=== PATIENT | female | born 1990 | race African-American/Black ===

== ENCOUNTER 2019-07-10 09:24 | Inpatient (IN) ==
--- NOTE | 2019-07-10 09:54 | PROVIDER DOCUMENTATION ---
HPI-General Adult - General Chief Complaint: Abnormal Lab[s] Stated Complaint: ABNORMAL LAB Time Seen by Provider: 07/10/19 09:39 Source: patient Allergies/Adverse Reactions: Patient Allergies Allergy/AdvReac Type Severity Reaction Status Date / Time No Known Allergies Allergy Verified 07/10/19 10:07 Home Medications: Home Medication List Medication Instructions Recorded Confirmed Last Taken Type Cholecalciferol (Vitamin D3) 50,000 unit PO DIRECTED 12/21/18 07/10/19 07/10/19 History [Vitamin D3] Ferrous Sulfate 500 gm MC DIRECTED 12/21/18 07/10/19 07/10/19 History Folic Acid 1 mg PO DAILY 12/21/18 07/10/19 07/10/19 History Magnesium Cl D.r. [Slow-Mag] 64 mg PO BID #60 tab 12/21/18 07/10/19 07/10/19 Rx Oxcarbazepine 600 mg PO BID 12/21/18 07/10/19 07/10/19 History Magnesium Oxide [Magnesium] 400 mg PO BID #30 cap 01/27/19 07/10/19 07/10/19 Rx Levetiracetam 1 tab PO BID 07/10/19 07/10/19 07/10/19 History - History of Present Illness -Gen Adult Nature of Presenting Problems: Patient is a 29yo F who presents after being referred from her PCP for "low blood and magnesium." Reports she has been experiencing generalized pain/back pain for "a minute." States her PCP informed patient she might have Lupus. Patient also reports a productive cough for weeks. States family hx of SCA, however reports she does not think she has ever been tested. Patient denies CP, SOB, n/v, blood in emesis/stool, abdominal pain. Labs from PCP's office faxed over demonstrating Hemoglobin of 6.9, Hematocrit of , and Magnesium of 0.88. Location of Pain/Injury: reports: generalized Pain Radiation: reports: no radiation Quality of Pain: reports: aching Severity: reports: mild Onset/Duration: reports: other ("a minute") Timing: reports: still present Context/Activities at Onset: reports: none Modifying Factors: improves with: nothing Associated Symptoms: reports: back/neck pain, cough, fever/chills, sinus c ongestion/drainage. denies: chest pain, nausea, shortness of breath, vomiting Similar Symptoms Previously?: No Recently seen or treated by another doctor?: Yes (saw PCP yesterday) Review of Systems - Adult - REVIEW OF SYSTEMS - ADULT Constitutional: reports: see HPI, fever Eyes: reports: no symptoms reported. denies: blurred vision, double vision Ears, Nose, Mouth & Throat: reports: no symptoms reported. denies: ear pain, throat pain Cardiovascular: reports: no symptoms reported. denies: chest pain, palpitations Respiratory: reports: see HPI, cough. denies: shortness of breath Gastrointestinal: reports: no symptoms reported. denies: abdominal pain, hematemesis, vomiting Genitourinary: reports: no symptoms reported. denies: dysuria Musculoskeletal: reports: see HPI, back pain (bilat. lower back), joint pain (generalized) Integumentary: reports: no symptoms reported Neurological: reports: no symptoms reported. denies: dizziness/vertigo, headache/migraines Psychiatric: reports: no symptoms reported Endocrine: reports: no symptoms reported Hematologic/Lymphatic: reports: see HPI, low blood count Past History - Adult - PAST MEDICAL HISTORY-ADULT Review of Records: reports: Nursing Assessment Review, Medications Reviewed Major Childhood Illnesses: reports: denies history Cardiovascular: reports: denies history Respiratory: reports: denies history Gastrointestinal: reports: denies history Obstetrical/Gynecological: reports: denies history Genitourinary: reports: denies history Musculoskeletal: reports: denies history Neurological: reports: Seizures/Epilepsy Endocrine/Immune: reports: denies history Other Conditions: reports: denies history - PRIOR SURGERIES/PROCEDURES Surgical/Procedure History: reports: other (SCA) - IMMUNIZATION STATUS Childhood Immunizations: See Nurse Assessment Flu Vaccine: See Nurse Assessment - FAMILY HISTORY Family History: reviewed, not pertinent - SOCIAL HISTORY Smoking: other (former) Substance Use: denies Alcohol Use Frequency: sober (former use) Physical Exam-General - PHYSICAL EXAM-ADULT Initial Vital Signs Reviewed: Yes - CONSTITUTIONAL General Appearance: alert, mild distress. negative: lethargic, slow to respond, obtunded - EYES Eyes: PERRL/EOMI, pink conjunctivae. negative: EOM palsy, scleral icterus - HEAD, EARS, NOSE, MOUTH & THROAT HENMT: normocephalic/atraumatic, moist mucous membranes. negative: angioedema - NECK Neck: full range of motion, supple, normal inspection - RESPIRATORY Respiratory: chest non-tender, lungs clear, normal breath sounds, no pleuratic chest pain, no respiratory distress, no accessory muscle use. negative: crackles, rales, rhonchi, stridor, wheezing - CARDIOVASCULAR Cardiovascular: no gallop, tachycardia (123) - GASTROINTESTINAL (ABDOMEN) Abdominal Exam: normal bowel sounds, non tender, soft. negative: tenderness - GENITOURINARY Rectal Exam: normal exam - MUSCULOSKELETAL Back Exam: normal inspection, no vertebral tenderness, other (mild TTP R lumbar paraspinous muscles) Extremity: normal range of motion, non-tender, normal inspection - SKIN Integumentary: normal color, warm/dry. negative: cyanosis, jaundice, pallor - NEUROLOGIC Neurologic: grossly normal. negative: aphasia, EOM palsy - PSYCHIATRIC Psych/Mental Status: normal mood/affect, normal thought content, normal thought process, oriented x 3 Progress - PLAN OF CARE/RESULTS Progress/Plan/Lab Results: Vital Signs - 8 hr 07/10/19 09:31 Temperature 99.7 F H Pulse Rate 123 H Respiratory Rate 19 Blood Pressure 78/46 O2 Sat by Pulse Oximetry 97 Orders Category Date Time Status Cardiac Monitoring NOW Care 07/10/19 09:37 Active ED: Urine Bedside ORDERED Care 07/10/19 09:47 Ordered IV Insertion NOW Care 07/10/19 09:37 Active NEWS Score >or=5:Order NEWS Bundle S.O. NOW Care 07/10/19 09:35 Active Notify Provider of NEWS Score NOW Care 07/10/19 09:37 Active CHEST-1 VIEW [RAD] Stat Exams 07/10/19 09:37 Ordered BLOOD CULTURE [BLDCUL] Stat Lab 07/10/19 09:37 Uncollected CBC WITH DIFF [HEME] Stat Lab 07/10/19 09:37 Uncollected CK PROFILE [SP CHEM] Stat Lab 07/10/19 09:37 Uncollected COMPREHENSIVE METABOLIC PANEL [CHEM] Stat Lab 07/10/19 09:37 Uncollected LACTATE, PLASMA [CHEM] Q3H Lab 07/10/19 09:45 Uncollected LACTATE, PLASMA [CHEM] Q3H Lab 07/10/19 12:45 Uncollected LACTATE, PLASMA [CHEM] Q3H Lab 07/10/19 15:45 Uncollected MAGNESIUM [CHEM] Stat Lab 07/10/19 09:47 Uncollected PHOSPHORUS [CHEM] Stat Lab 07/10/19 09:47 Uncollected PROTIME WITH INR [COAG] Stat Lab 07/10/19 09:37 Uncollected PTT [COAG] Stat Lab 07/10/19 09:37 Uncollected SICKLE CELL SCREEN [HEME] Stat Lab 07/10/19 09:47 Uncollected TROPONIN T HIGH SENSITIVITY Stat Lab 07/10/19 09:37 Uncollected TYPE & SCREEN [BBK] Stat Lab 07/10/19 09:47 Uncollected URINE DRUG SCREEN Stat Lab 07/10/19 09:48 Uncollected O2 Per Protocol Stat Oth 07/10/19 09:37 Active Lab results, imaging results, plan of care, and need for admission discussed with patient who agrees with and verbalizes understanding. 1207: Patient's CXR has resulted demonstrating basilar pneumonia. Hospitalist paged for notification. Plan of care discussed and formulated in conjunction with Dr. Decker. Result Diagrams: 07/10/19 09:50 07/10/19 09:50 - XRAY 1 XRAY: Bilateral XRAY Study: Lumbar Spine Impression: See EMR Report ([facility] - [address] [facility], [address] [address] [facility] - [address] [place] [address] Department of Imaging Patient: MERVAT LUIS Date: 07/10/19MR#: [id number] : 1990ADM [id number] Age/Sex: 29/FRoom/Bed: Loc: ED Ordering Physician: Mayela Lara Family Physician: Audra Amaya Reason for Procedure: R back pain Signed EXAM: LUMBAR SPINE HISTORY: R back pain TECHNIQUE: AP and lateral with obliques, six views COMPARISON: None. FINDINGS: There is good alignment to the lumbar spine. No compressed vertebra. No degenerative bone spurring.L4 pars defects but only minimal subluxation. IMPRESSION: Pars defects Electronically signed by Julian Dubose 07/10/2019 11:2 8 AM 07/10/19 1128 Interpreting Physician: Julian Dubose MD Dictated Date/Time: 07/10/19 1126 cc: Mayela Ordoñez; Audra Amaya) 2 XRAY: Bilateral XRAY Study: Chest Impression: See EMR Report ([facility] - [address] [facility], [address], [place] [address] [facility] - [address] [place] [address] Department of Imaging Patient: MERVAT LUIS Date: 07/10/19MR#: [id number] : 1990ADM Status: [facility]#: [id number] Age/Sex: 29/FRoom/Bed: Loc: ED Ordering Physician: Mayela Lara Family Physician: Audra Amaya Reason for Procedure: Productive cough; fever Signed EXAM: CHEST-2 VIEWS HISTORY: Productive cough; fever TECHNIQUE: two views COMPARISON: 12-08-17. FINDINGS: The lungs are well expanded. The heart is not enlarged. The vessels are not distended. There are basilar infiltrates. No pleural effusions. IMPRESSION: Base pneumonia. Electronically signed by Julian Dubose 07/10/2019 11:29 AM 07/10/19 1129 Interpreting Physician: Julian Dubose MD Dictated Date/Time: 07/10/19 1128 cc: Mayela Ordoñez; Audra Amaya) - CONSULTS/PCP/HOSPITALIST Notification #1 *Consult/PCP/Hospitalist*: HECTOR Sanchez Hospitalist Time Discussed: 11:18 Reason/Comments: Symptomatic anemia, sickle cell crisis Consult Disposition: Will see in ED, Admit #2 Consult: HECTOR Sanchez Hospitalist Time Discussed: 12:10 Reason/Comments: CXR demonstrates PNA; hypomagnesemia Consult Disposition: Admit (Order IV Zosyn and Magnesium) Departure - Departure Date of Disposition Decision: 07/10/19 Time of Disposition Decision: 11:18 DIAGNOSIS: Hyponatremia, Hypomagnesemia Sickle cell anemia Qualifiers: Sickle-cell associated disorders: with unspecified crisis Qualified Code(s): D57.00 - Hb-SS disease with crisis, unspecified Pneumonia Qualifiers: Pneumonia type: due to unspecified organism Laterality: bilateral Lung location: lower lobe of lung Qualified Code(s): J18.1 - Lobar pneumonia, unspecified organism Disposition: ADMITTED INPATIENT 09 Certified Medical Emergency: Emergent Condition: Stable - Critical Care Note This patient required my direct & personal management of CC.: Yes Total Time (mins): 36 Critical Care Statement: This patient required my direct personal management to treat or rule out processes, the absence of which, could potentiallly result in sudden, clinically significant life or limb threatening deterioration. Attestation - Physician/ MARGARITA Attestation Patient care was provided by Advanced Practice Provider:: Yes Advanced Practice Provider:: Mayela Ordoñez Advanced Practice Provider documentation review:: The Mid-level provider documentation, treatment plan and medical decision making was reviewed by the physician who agrees with all treatment and medical decision making by the P. The physician spent face to face time with patient:: No Advanced Practice Provider documentation review:: Supervising physician onsite and consulted in the evaluation and care of this patient. The physician did not have a face to face encounter with the patient.
[2019-07-10 10:21] LABS: RETIC% 2.11 % (0.8-2.1); RETIC-HE 25.6 PG (28.2-36.6)
[2019-07-10 10:23] LABS: BASO# 0.02 X1000 (0.0-0.2); BASO% 0.4 % (0.0-0.8); EOS# 0.02 X1000 (0.0-0.7); EOS% 0.4 % (0.0-10.0); HEMATOCRIT 21.8 % (37.0-47.0); HEMOGLOBIN 6.8 g/dL (12.0-16.0); IMM GRAN# 0.03 X1000 (0.0-0.04); IMM GRAN% 0.6 % (0.0-0.5); LYMPH# 0.84 X1000 (1.2-3.4); MCH 26.2 PG (27-31); MCHC 31.2 g/dL (33-37); MCV 83.8 FL (81-99); MONO# 0.26 X1000 (0.11-0.59); MONO% 5.6 % (1.7-9.3); MPV 9.4 FL (7.4-10.4); NEUT# 3.49 X1000 (1.4-6.5); PLT 294 X1000 (130-400); RDW 13.8 % (11.5-14.5); WBC 4.66 X1000 (4.8-10.8)
[2019-07-10 10:35] LABS: INR 1.22; PROTIME 15.6 Seconds (11.0-16.0)
[2019-07-10 10:36] LABS: PTT 33.1 Seconds (22.3-41.8)
[2019-07-10 10:45] LABS: BANDS 8 % (0-1); LYMPHS 24 % (21-51); SEGS 68 % (42-75)
[2019-07-10] MEDS ORDERED: NS 500 ML IV ONE (10:49)
[2019-07-10 10:56] LABS: ESTIMATED GFR > 60
[2019-07-10 10:57] LABS: IRON SATURATION 18 %; TIBC 137 ug/dL; TOTAL IRON 25 ug/dL (49-151); UNBOUND IRON 112 ug/dL (112-346)
[2019-07-10 11:11] LABS: AGAP 12; ALB/GLOB RATIO 0.4; ALBUMIN 2.3 g/dL (3.5-5.0); ALKALINE PHOSPHATASE 42 U/L (32-104); BUN 10 mg/dL (8-22); CALCIUM 7.6 mg/dL (8.8-10.2); CHLORIDE 102 mmol/L (98-107); CK PROFILE 118 U/L (24-173); COSMO 266; CREATININE 0.7 mg/dL (0.5-0.9); GLUCOSE 116 mg/dL (70-104); GOT 35 U/L (10-30); GPT 20 U/L (10-36); PHOSPHORUS 3.6 mg/dL (2.7-4.5); POTASSIUM 3.8 mmol/L (3.5-5.1); SODIUM 133 mmol/L (136-145); TCO2 19 mmol/L (25-35); TOTAL BILIRUBIN 0.29 mg/dL (0.20-1.00); TOTAL PROTEIN 8.7 g/dL (6.3-8.3)
[2019-07-10 11:13] LABS: SICKLE CELL SCREEN POSITIVE (NEGATIVE)
[2019-07-10 11:15] LABS: UR AMPHETAMINES QUAL NONE DETECTED (NONE DETECT); UR BARBITUATES QUAL NONE DETECTED (NONE DETECT); UR BENZODIAZEPIN QUAL NONE DETECTED (NONE DETECT); UR CANNABINOIDS QUAL NONE DETECTED (NONE DETECT); UR COCAINE QUAL NONE DETECTED (NONE DETECT); UR METHADONE QUAL NONE DETECTED (NONE DETECT); UR OPIATES QUAL NONE DETECTED (NONE DETECT); UR OXYCODONE QUAL NONE DETECTED (NONE DETECT); UR PCP QUAL NONE DETECTED (NONE DETECT)
--- NOTE | 2019-07-10 11:30 | Diag Imaging Result Doc PS360 ---
EXAM: LUMBAR SPINE HISTORY: R back pain TECHNIQUE: AP and lateral with obliques, six views COMPARISON: None. FINDINGS: There is good alignment to the lumbar spine. No compressed vertebra. No degenerative bone spurring.L4 pars defects but only minimal subluxation. IMPRESSION: Pars defects Electronically signed by Julian Dubose 07/10/2019 11:28 AM
--- NOTE | 2019-07-10 11:32 | Diag Imaging Result Doc PS360 ---
EXAM: CHEST-2 VIEWS HISTORY: Productive cough; fever TECHNIQUE: two views COMPARISON: 12-08-17. FINDINGS: The lungs are well expanded. The heart is not enlarged. The vessels are not distended. There are basilar infiltrates. No pleural effusions. IMPRESSION: Base pneumonia. Electronically signed by Julian Dubose 07/10/2019 11:29 AM
[2019-07-10 11:47] LABS: MAGNESIUM 1.1 mg/dL (1.5-2.7)
[2019-07-10] MEDS ORDERED: FERROUS SULFATE MC SCH (11:57)
[2019-07-10] MEDS ORDERED: ZOFRAN IV PRN (11:57)
[2019-07-10] MEDS ORDERED: TYLENOL PO PRN (11:57)
[2019-07-10] MEDS ORDERED: ZOSYN 3.375 GM in NS 50 ML IV ONE (12:09)
[2019-07-10] MEDS ORDERED: MAGNESIUM SULFATE 2 GM/S.W.I. 2 GM/50 ML IVPB IV ONE ×2 (12:10→12:11)
[2019-07-10] MEDS ORDERED: FLU VACCINE IM ONE (12:44)
[2019-07-10] MEDS: NS 1,000 ML IV SCH (15:12)
--- NOTE | 2019-07-10 15:27 | HISTORY AND PHYSICAL ---
CHIEF COMPLAINT: Sent from her primary care's office secondary to abnormal blood work, body pain, back pain, hard to walk. PRIMARY CARE PROVIDER: Audra Hanson NEUROLOGIST: Dr. Wilson HISTORY OF PRESENT ILLNESS: Ms. Graff is a 29-year-old female with a past medical history of seizures as a child, hypomagnesemia, what looks like iron deficiency anemia; however, she claims no other past medical history. Reports fever yesterday while she was getting her blood drawn. She was coughing up stuff last week. Still has a cough. She reported her cough being yellowish in color, sometimes blood tinged. She was instructed to come to the ED at the recommendation of her primary care provider. She was found to have an hemoglobin and hematocrit of 6 and 21. Her sickle cell screen was positive. Her percentage of reticulocytes was 2.11, and reticulocyte hemoglobin equivalent was 25.6. She had a magnesium of 1.1 and a magnesium of 3.8. Two negative lactates. She was initiated on IV fluids. She was typed and screened and will be given 2 units of PRBCs. We put in a consult for Hematology given her new diagnosis of sickle cell at the age of 29. Chest x-ray just showed a basilar pneumonia. Lumbar spine shows pars defects at L4 but only minimal subluxation. She is going to be admitted for sickle cell as well as pneumonia. Continue with further treatment and evaluation. PAST MEDICAL HISTORY: Seizures, iron deficiency anemia. PAST SURGICAL HISTORY: Denies. SOCIAL HISTORY: She lives with family. No tobacco, alcohol or illicit drug use. FAMILY HISTORY: Mother with lung cancer. Aunt with lupus. She called her brother to ask about sickle cell. There was a possibility that there was some on her mother's side, they are really unsure. ALLERGIES: No known drug allergies. HOME MEDICATIONS: 1. Ferrous sulfate 500 as directed. 2. Folic acid 1 mg p.o. daily. 3. Keppra 500 mg p.o. b.i.d. 4. Trileptal 600 mg p.o. b.i.d. 5. Magnesium 400 mg p.o. b.i.d. REVIEW OF SYSTEMS: A 12-point review of systems is completely negative except for those mentioned in the HPI. PHYSICAL EXAMINATION: VITAL SIGNS: Temperature is 99.4, heart rate 122, respirations 20, blood pressure 133/86, O2 saturation is 100% on room air. GENERAL: Ms. Graff is a pleasant 29-year-old female who is sitting up in the bed eating a cheeseburger and austrian fries, in no acute distress. HEENT: Atraumatic and normocephalic. PERRLA. NECK: Supple. Trachea midline. CARDIOVASCULAR: S1 and S2 appreciated. Tachycardic, but no murmurs, rubs or gallops noted. No lower extremity edema. No JVD. PULMONARY: Bilateral breath sounds clear bilaterally. I did not appreciate any rales, rhonchi or wheezes. GASTROINTESTINAL: Flat, soft, nontender, nondistended. Positive bowel sounds in all 4 quadrants. NEUROLOGICAL: She is awake, alert and oriented, follows commands, answers all questions appropriately. Some question of cognitive issues, however, very minimal. SKIN: Warm, dry and intact. DIAGNOSTIC DATA: Chest x-ray shows base pneumonia with bibasilar infiltrates. Lumbar spine shows pars defect. Laboratory data shows white count of 4, hemoglobin and hematocrit are 6 and 21. Sickle cell positive. Percent reticulocytes 2.11, reticulocyte hemoglobin equivalent was 25.6. Sodium is 133, potassium 3.8, BUN is 10, creatinine 0.6, blood glucose is 116, magnesium was 1.1. Iron was 25. First lactate 1.5, second lactate 1.3. Tox screen negative. ASSESSMENT AND PLAN: 1. Sickle cell anemia. She will be transfused with 2 units of PRBCs. We will consult Hematology for further evaluation and treatment. 2. Bibasilar pneumonia. She was initiated on IV antibiotics. Continue with aggressive pulmonary toilet. Supplement O2 as needed. Bronchodilators. 3. Mild hyponatremia. We will continue with IV hydration. 4. Hypomagnesemia. Currently being replenished. We will recheck in the a.m. 5. Iron deficiency anemia. 6. Seizures. She will continue on her home regimen. 7. Mild Cognitive impairment. 8. Further recommendations to follow physician evaluation, laboratory and diagnostic data. Dictated by HECTOR Clarke for Angel Rose MD cc: MD Audra Dong
[2019-07-10] MEDS: DUONEB (A & A) INH PRN (15:57)
--- NOTE | 2019-07-10 19:01 | HISTORY AND PHYSICAL ---
ADDENDUM REPORT I have seen and examined Ms. Graff today. HISTORY OF PRESENT ILLNESS: Ms. Graff is a 29-year-old female who was directly admitted from her primary care office because of abnormal labs. Ms. Graff said she went for her regular physical. Lab tests were done. She was called to come to the ER because of low hemoglobin and hematocrit. Upon presenting, her blood count was 6.8. Ms. Graff has a history of seizure disorder on Keppra and oxcarbazepine. OBJECTIVE: Vital signs: Blood pressure is 140/71, pulse of 113, respirations 20, temperature 99.4 degrees. General: Ms. Graff 29-year-old female. She is in bed. No distress. Mucosa is pink and moist. Anicteric. Acyanotic. Neck: Supple. Chest: Good air entry bilateral. There was no crepitations. No rhonchi. Cardiovascular: Regular rate and rhythm. Abdomen: Soft, nontender. Extremities: No pedal edema. Central Nervous System: Patient is awake, alert. She is oriented to person, to place and time but she seems slightly slow in mentation. The patient also has low-set ears and slanted eye features. These are concerning for some chromosomopathy. LABORATORY DATA: WBC is 4.66, hemoglobin is 6.8, platelet count of 294,000. INR is normal. Chemistry shows non-gap metabolic acidosis. IMAGING STUDIES: Including a chest x-ray shows base pneumonia. ASSESSMENT: 1. Normocytic anemia with hypoproliferative bone marrow state.Sickle cell screening is positive. How ever the labs does not support hemolysis 2. History of lupus. 3. Generalized body pains and aches. 4. Bibasilar pneumonia. 5. Intellectual impairment. 6. 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 7. History of seizures. 8. Non-gap metabolic acidosis with a previous urinalysis concerning for albuminuria, low magnesium, all concerning for a proximal tubal defect. In the context of anemia and what seems to be the somatic features of the patient will need to be concerned Fanconi syndrome at some point. Please refer to the details of the history and physical dictated by the BLOW MOLD TECHNICIAN. I have discussed the plan with her. I have also discussed the plan and my findings with Ms. Graff. cc: MD GEORGES Dong
[2019-07-10] MEDS: MAG-OX PO SCH (21:42)
[2019-07-10] MEDS: TRILEPTAL PO SCH (21:42)
[2019-07-10] MEDS: KEPPRA PO SCH (21:42)
[2019-07-10 23:58] LABS: URINE SOURCE CLEAN CATCH
[2019-07-11 02:02] LABS: BILIRUBIN URINE NEGATIVE (NEGATIVE); BLOOD URINE LARGE (NEGATIVE); COLOR YELLOW; GLUCOSE URINE NEGATIVE (NEGATIVE); KETONE URINE NEGATIVE (NEGATIVE); LEUKOCYTES URINE TRACE (NEGATIVE); NITRITE URINE NEGATIVE (NEGATIVE); PH URINE 6.5; PROTEIN URINE 30 mg/dL (NEGATIVE); SP GRAVITY URINE 1.015; TURBIDITY URINE CLEAR (CLEAR); UROBILINOGEN URINE NORMAL (NORMAL)
[2019-07-11 02:03] LABS: URINE WBC <10 /HPF (<10)
[2019-07-11 02:04] LABS: UR EPITHELIAL CELLS >10 /HPF (<10); URINE BACTERIA NEGATIVE /HPF; URINE RBC >40 /HPF (<10)
[2019-07-11 07:41] LABS: BASO# 0.03 X1000 (0.0-0.2); BASO% 0.8 % (0.0-0.8); EOS# 0.02 X1000 (0.0-0.7); EOS% 0.6 % (0.0-10.0); HEMATOCRIT 29.4 % (37.0-47.0); HEMOGLOBIN 9.5 g/dL (12.0-16.0); LYMPH# 0.75 X1000 (1.2-3.4); LYMPH% 21.1 % (20.5-51.1); MCH 27.5 PG (27-31); MCHC 32.3 g/dL (33-37); MONO# 0.29 X1000 (0.11-0.59); MONO% 8.1 % (1.7-9.3); MPV 9.8 FL (7.4-10.4); NEUT# 2.47 X1000 (1.4-6.5); NEUT% 69.4 % (42.2-75.2); PLT 271 X1000 (130-400); RBC 3.46 XMIL (4.2-5.4); RDW 14.3 % (11.5-14.5); WBC 3.56 X1000 (4.8-10.8)
[2019-07-11 08:15] LABS: AGAP 9; ALB/GLOB RATIO 0.4; ALBUMIN 2.3 g/dL (3.5-5.0); ALKALINE PHOSPHATASE 44 U/L (32-104); BUN 8 mg/dL (8-22); CALCIUM 7.5 mg/dL (8.8-10.2); CHLORIDE 103 mmol/L (98-107); COSMO 262; CREATININE 0.5 mg/dL (0.5-0.9); ESTIMATED GFR > 60; GLUCOSE 83 mg/dL (70-104); GOT 33 U/L (10-30); GPT 20 U/L (10-36); MAGNESIUM 1.3 mg/dL (1.5-2.7); POTASSIUM 4.1 mmol/L (3.5-5.1); SODIUM 132 mmol/L (136-145); TCO2 20 mmol/L (25-35); TOTAL BILIRUBIN 0.32 mg/dL (0.20-1.00); TOTAL PROTEIN 8.7 g/dL (6.3-8.3)
[2019-07-11] MEDS: KEPPRA PO SCH ×2 (09:01→20:41)
[2019-07-11] MEDS: FOLIC ACID PO SCH (09:01)
[2019-07-11] MEDS: TRILEPTAL PO SCH ×2 (09:01→20:41)
[2019-07-11] MEDS: MAG-OX PO SCH ×2 (09:01→20:41)
[2019-07-11] MEDS: PLAQUENIL PO SCH (09:03)
[2019-07-11] MEDS ORDERED: ROCEPHIN 1 GM in NS 50 ML IV SCH (12:15)
[2019-07-11] MEDS: CELEBREX PO SCH (14:53)
[2019-07-11] MEDS: NS 1,000 ML IV SCH (15:21)
[2019-07-11] MEDS ORDERED: VITAMIN D PO ONE (15:38)
--- NOTE | 2019-07-11 16:59 | PROGRESS NOTE ---
DATE: 07/11/2019 SUBJECTIVE: This morning Ms. Graff referred to be doing well. No new complaints. She thinks her generalized body pains are getting better, as well as her joint pains. OBJECTIVE: Vital signs: Blood pressure is 103/75, pulse of 100, respiration is 24, temperature 98.9 degrees. Patient is saturating 99% on room air. General: Ms. Graff is a 29-year-old female. She is in bed, no distress. HEENT: Mucosa is pink and moist. Anicteric. Acyanotic. Neck: Supple. Chest: Clear to auscultation. No crepitations. No rhonchi. Cardiovascular: Regular rate and rhythm. No murmurs. No rubs. No gallops. GI: Abdomen is soft, nontender. Bowel sounds present. Extremities: No pedal edema. STAPLING MACHINE OPERATOR: Patient is awake, alert, oriented. Kind of slow to respond. LABORATORY DATA: WBC is 3.56, hemoglobin is 9.5, platelet count of 271,000. Chemistry is all reviewed, is unremarkable. Patient's bicarb is 20. Vitamin D is 9.6 which is remarkably low. Procalcitonin is negative. ASSESSMENT: 1. Normocytic anemia with hypoproliferative bone marrow state. The patient is status post 2 PRBC transfusion. Hemoglobin and hematocrit have improved from 6.8 to 9.5 this morning. 2. Bicytopenia (leukopenia and anemia). 3. Generalized body pains associated with arthralgias, all with elevated inflammatory markers concerning for lupus flare. 4. History of lupus, possibly in flare. 5. Bibasilar infiltrates concerning for pneumonia. However, the patient's procalcitonin is negative, so I doubt if this is bacterial pneumonia. It possibly just atelectasis. 6. Intellectual impairment, noted. 7. History of seizures. 8. None-gap metabolic acidosis. 9. 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 Please refer to the details of the progress note that has also been written up by the medical student. cc: Angel Rose MD MTDD
--- NOTE | 2019-07-11 20:04 | HEMO/ONC CONSULTATION ---
DATE: 07/11/2019 ADMITTING PHYSICIAN: Dr. Angel Rose. REQUESTING PHYSICIAN: Dr. Angel Rose. We appreciate this consult. CHIEF COMPLAINT: Sickle cell disease. HISTORY OF PRESENT ILLNESS: Ms. Neahl Graff is a 29-year-old female who is known to Dr. Hernandez with a history of sickle cell disease. We have seen the patient during a hospitalization for crisis. The patient has followed up in clinic with us 1 time approximately 10 months ago. The patient has been noncompliant with followup since that time. The patient presented to [facility] with reports of fever and a cough productive of yellowish sputum. Upon presentation, the patient was found to have a hemoglobin of 8 and hematocrit of 21. Sickle cell screen was positive. Reticulocyte count was 2.11. The patient also underwent a chest x-ray, which revealed pneumonia. We are consulted, as the patient is known to us. PAST MEDICAL HISTORY: 1. Seizure disorder. 2. Sickle cell disease. 3. Iron-deficiency anemia. PAST SURGICAL HISTORY: None. SOCIAL HISTORY: The patient does not use tobacco, alcohol or illicit drugs. FAMILY HISTORY: Family history is significant for lung cancer in the patient's mother, lupus in the patient's aunt. MEDICATIONS ON ADMISSION: 1. Ferrous sulfate. 2. Folic acid. 3. Keppra. 4. Trileptal. 5. Magnesium. ALLERGIES: The patient has no known drug allergies. REVIEW OF SYSTEMS: A 14 point review of systems was negative except for as mentioned in HPI. PHYSICAL EXAMINATION: General: Ms. Graff is a 29-year-old female lying supine in bed, quite somnolent, but otherwise in no apparent distress. Vital Signs: Temperature 98.6, blood pressure 110/79, heart rate 96, respirations 18, O2 saturation 99% on room air. HEENT: Normocephalic, atraumatic. Mucous membranes slightly pale and moist. Sclerae anicteric. Extraocular movements intact. Neck: Supple. Lungs: Clear to auscultation bilaterally. Chest expansion equal bilaterally. CV: S1, S2 are heard without murmur, rub or gallop. Abdomen: Nondistended. Extremities: No clubbing, cyanosis, or edema. Dermatologic: No rashes, bruises, or lesions. Neurologic: The patient is awake, alert, oriented x3. He has no focal deficit. Gait is normal. LABORATORY DATA: Hemoglobin 9.5, hematocrit 29.4, white blood cell count 3.56, platelets 271. Sodium 132, potassium 4.1, chloride 103. CO2 is 20, BUN 8, creatinine 0.5 and glucose is 83. Calcium 7.5, magnesium 1.3, bilirubin 0.32, alkaline phosphatase 44, AST 33, ALT 20. Reticulocytes 2.11, iron saturation 18%. ASSESSMENT AND PLAN: 1. Sickle cell disease with anemia. The patient is status post 2 units of packed red blood cells. She was seen in clinic approximately 10 months ago and has been noncompliant with follow-up since that time. We will reschedule follow-up. 2. Bibasilar pneumonia, on ceftriaxone. 3. Iron-deficiency anemia. The patient is status post 2 units packed red blood cells, which will adequately resupply iron. 4. Seizure disorder, on levetiracetam and Trileptal with no recent seizures. The patient is followed by Dr. Fernandez. 5. We will follow along with you and make further recommendations pending outcomes. The above reflects the history, exam, assessment, and plan of Dr. Hernandez. Dictated by HECTOR Corado for Dandre Hernandez MD cc: HECTOR Corado MD
[2019-07-11] MEDS ORDERED: MUCINEX DM PO ONE (22:38)
[2019-07-12] MEDS: NS 1,000 ML IV SCH ×2 (02:02→03:11)
[2019-07-12 07:11] LABS: HEMATOCRIT 28.7 % (37.0-47.0); HEMOGLOBIN 9.4 g/dL (12.0-16.0); MCH 28.1 PG (27-31); MCHC 32.8 g/dL (33-37); MCV 85.9 FL (81-99); MPV 9.8 FL (7.4-10.4); RBC 3.34 XMIL (4.2-5.4); RDW 14.9 % (11.5-14.5); WBC 4.17 X1000 (4.8-10.8)
[2019-07-12 07:44] LABS: AGAP 9; ALBUMIN 2.2 g/dL (3.5-5.0); BUN 7 mg/dL (8-22); CALCIUM 7.5 mg/dL (8.8-10.2); CHLORIDE 104 mmol/L (98-107); COSMO 262; CREATININE 0.5 mg/dL (0.5-0.9); ESTIMATED GFR > 60; GLUCOSE 89 mg/dL (70-104); PHOSPHORUS 3.6 mg/dL (2.7-4.5); POTASSIUM 4.3 mmol/L (3.5-5.1); SODIUM 132 mmol/L (136-145); TCO2 19 mmol/L (25-35)
[2019-07-12 08:14] VITALS: BP 118/85
[2019-07-12] MEDS: DUONEB (A & A) INH PRN (08:57)
[2019-07-12] MEDS ORDERED: MUCINEX DM PO SCH (09:00)
[2019-07-12] MEDS: TRILEPTAL PO SCH (09:34)
[2019-07-12] MEDS: FOLIC ACID PO SCH (09:34)
[2019-07-12] MEDS: KEPPRA PO SCH (09:34)
[2019-07-12] MEDS: MAG-OX PO SCH (09:34)
[2019-07-12] MEDS: PLAQUENIL PO SCH (09:34)
[2019-07-12] MEDS: CELEBREX PO SCH (09:34)
[2019-07-12 09:55] LABS: HEMOGLOBIN ELECTROPHORESIS SEE COMMENTS
--- NOTE | 2019-07-13 15:13 | DISCHARGE SUMMARY ---
ADMISSION DATE: 07/10/2019 DISCHARGE DATE: 07/12/2019 DISPOSITION: Home. FOLLOW-UP: 1. Audra Amaya CARD GAME OPERATOR. 2. Dr. Inman. 3. Dr. Camacho. CONSULTATION DURING THIS ADMISSION: Hem/Onc was consulted; patient was seen by Dr. Hernandez. INVASIVE PROCEDURES DONE DURING THIS ADMISSION: None. IMAGING STUDIES OF SIGNIFICANCE: 1. A chest x-ray shows base pneumonia. 2. Lumbar x-ray showed pars defects. ADMISSION DIAGNOSES: 1. 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 2. Bibasilar infiltrate suggestive of pneumonia. 3. Hyponatremia. 4. Hypomagnesemia. 5. History of seizures. DIAGNOSES AT THE TIME OF DISCHARGE: 1. Normocytic anemia with hypoproliferative bone marrow state. The patient was transfused 2 packed red blood cells. Hemoglobin got normalized. 2. Bicytopenia (leukopenia and anemia). 3. Generalized body pains associated with arthralgias and elevated inflammatory markers, all concerning for lupus flare. 4. History of lupus with extremely elevated double-stranded DNA. The patient's other antibodies seem to also be elevated. She has been advised to follow up with Dr. Inman. 5. Bibasilar infiltrates concerning for pneumonia. The patient's procalcitonin was however negative, so I think this was mainly atelectasis. 6. History of seizures. 7. 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 8. Non-gap metabolic acidosis. 9. Sickle cell screening positive. However, the electrophoresis of hemoglobin was negative. The patient has 97% of hemoglobin A, zero of any variant and zero of hemoglobin F. DISCHARGE MEDICATIONS: 1. Iron sulfate. 2. Oxcarbazepine 600 b.i.d. 3. Vitamin D 5000 as directed. 4. Folic acid 1 mg p.o. daily. 5. Magnesium Oxide 400 b.i.d. 6. Levothyroxine 500 b.i.d. 7. Prednisone 5 mg p.o. daily. 8. Celebrex 200 mg p.o. daily. 9. Plaquenil 200 mg p.o. daily. DISPOSITION: Ms. Graff has been advised to follow up with Dr. Inman for the lupus and also Dr. Camacho, intermediate teacher, for exam since she has been started on hydroxychloroquine. PRESENTING COMPLAINT: Abnormal labs, body pains, hard to walk. HISTORY OF PRESENTING COMPLAINT: Ms. Graff is a 29-year-old female, who has history of seizures, hypomagnesemia, iron deficiency. 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 HOSPITAL COURSE: Ms. Graff was admitted to the medical floor. She was initially started on IV fluids, antibiotics because of suspicion of pneumonia. Hemoglobin was down to 6.8. However, her reticulocyte count was not very elevated, and there were not any other signs on laboratory data to suggest ongoing hemolysis. During the hospital course, however, Ms. Graff continued to show steady improvement. She was started on Plaquenil and Celebrex, and she felt better. Today I received the DIP[facility] report which I have been able to review. The sedimentation rate, as well as C-reactive protein were all elevated. We think her presentation was all related to lupus flare. She has been started on low- dose steroid, and has been advised to follow up with Dr. Inman. Of note, Ms. Graff has been told that she has sickle cell disease. Her sickle cell screening test was positive, however electrophoresis of her hemoglobin is completely negative, so I am not sure if this is a false- negative or it is just an antibody that is reacting because of her lupus. In either case, she will also follow up with Dr. Hernandez. All the discharge instructions were discussed with her. I also spoke extensively on the phone with her dad and encouraged him to ensure that Ms. Graff follows up with a dielectric embossing machine operator because I think this is more of a rheumatological disease than a primary hematological disease. TIME SPENT FOR DISCHARGE: 38 minutes. cc: Angel Rose MD MTDD
[2019-07-18] MEDS ORDERED: VITAMIN D PO SCH (09:00)
== END 2019-07-12 11:40 | disposition home or self-care (01) | DRG 812 ==
LOC: ED 09:24 → EDIPHOLD 11:34 → 4N 14:33
PROVIDERS: ATTEND Internal Medicine